=== PATIENT | male | born 1980 | race Caucasian/White ===

== ENCOUNTER → 2019-03-24 | Outpatient (CLI) | payer BC ==
--- NOTE | 2019-03-24 15:26 | XR ---
EXAMINATION TYPE: XR foot complete LT DATE OF EXAM: 03/24/2019 CLINICAL HISTORY: Persistent calcaneal pain and first and second digit pain after injury 6-8 months a go. TECHNIQUE: Frontal, lateral, and oblique images of the left foot are obtained. COMPARISON: None FINDINGS: There is no acute fracture/dislocation evident in the left foot. The joint spaces in the left foot appear aligned. There is arthropathy of the first metatarsal phalangeal joint and is mild w ith small marginal osteophyte and opposing surface sclerosis. The overlying soft tissue appears unrem arkable. IMPRESSION: There is no acute fracture or dislocation in the left foot. Mild arthropathy of the firs t metatarsal phalangeal joint.
== END | disposition home or self-care (01) ==
LOC: RADXRYALE 13:40
PROVIDERS: ATTEND Internal Medicine
DX: M12.872 Other specific arthropathies, not elsewhere classified, left ankle and foot (principal)

== ENCOUNTER → 2019-10-26 | Outpatient (CLI) | payer BC ==
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
== END | disposition home or self-care (01) ==
LOC: RADCTMAIN 07:27
PROVIDERS: ATTEND Surgery
DX: N28.89 Other specified disorders of kidney and ureter (principal); E27.8 Other specified disorders of adrenal gland
CPT/HCPCS: 74177; Q9967

== ENCOUNTER → 2022-08-22 | Outpatient (CLI) | payer OTHER ==
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
== END | disposition home or self-care (01) ==
LOC: RADUSWWP 14:13
PROVIDERS: ATTEND Family Medicine
DX: R22.1 Localized swelling, mass and lump, neck (principal)
CPT/HCPCS: 76536